=== PATIENT | male | born 1955 | race Two or more races ===

== ENCOUNTER 2016-05-19 08:53 | Day surgery (SDC) | payer BC ==
[~2016-05-19] VITALS: Ht 170.2 cm; Wt 90.6 kg
[2016-05-19 09:23] VITALS: Ht 170.2 cm; Wt 90.6 kg
[2016-05-19] MEDS ORDERED: OMEP20CA16 PO (09:38)
[2016-05-19] MEDS ORDERED: LOSA25TA5 PO (09:38)
[2016-05-19] MEDS ORDERED: ETAN25DI2 SQ (09:38)
[2016-05-19 09:44] VITALS: BP 139/74; PULSE 56; RESP 13
[2016-05-19] MEDS ORDERED: PROPOFOL 60 ML ONE (09:48)
[2016-05-19] MEDS ORDERED: LIDOCAINE 2% (SDV) 5 ML INJ ONE (09:48)
[2016-05-19 11:22] VITALS: BP 148/77; PULSE 52
--- NOTE | 2016-05-19 11:36 | GILP ---
DATE OF PROCEDURE: 05/19/2016 NAME OF PROCEDURES: 1. Esophagogastroduodenoscopy and biopsy. 2. Colonoscopy and biopsy. SURGEON: Yadiel Ba MD PREOPERATIVE DIAGNOSES: 1. Chronic heartburn. 2. Dysphagia. 3. Change in the bowel habit. 4. Weight loss. POSTOPERATIVE DIAGNOSES: 1. Hiatal hernia. 2. Gastroesophageal reflux disease. 3. Gastritis with erosions. 4. Gastric mucosal biopsies were taken for Helicobacter pylori test. 5. Colonoscopy all the way to the cecum. 6. Four small colon polyps were removed using the biopsy forceps. 7. Internal hemorrhoids. INDICATION FOR THE PROCEDURE: Mr. Jean Flaherty is a 60-year-old male patient who had chronic heart burn, not responding to therapy. The patient also had history of dysphagia. He had noticed a tyler e in the bowel habit with weight loss. The patient was scheduled for endoscopy and colonoscopy for further evaluation. The procedures and possible complications were well explained to the patient. The patient understoo d and consented to the procedure. DESCRIPTION OF PROCEDURE: Under the influence of anesthesia, the gastroscope was carefully introduc ed into the esophagus and under direct vision, it was advanced to the stomach and through the pyloru s into the duodenal bulb and descending duodenum. FINDINGS: ESOPHAGUS: The patient had hiatal hernia and gastroesophageal reflux disease. STOMACH: He had gastritis with erosions. Gastric mucosal biopsies were taken for H. pylori test. DUODENUM: Normal. The colonoscope was carefully introduced in the rectum and under direct vision, it was advanced all the way to the cecum. FINDINGS: The patient had 4 small colon polyps and they were removed using the biopsy forceps. He was noted to have internal hemorrhoids. He tolerated the procedures very well and there was no complication from the procedures. At the end of the procedures, he was awake with stable vital signs and he was discharged home to the care of h is family. IMPRESSION: Please see postoperative diagnosis. PLAN: 1. Continue omeprazole. 2. Add Zantac 300 mg p.o. at bedtime. 3. Await histopathology reports. Next screening colonoscopy in 5 years. Dictated By: YADIEL BA MD GD/SINDY Conf#: [id number] DID#: [id number] CC: YADIEL BA MD;*EndCC*
== END 2016-05-19 12:14 | disposition home or self-care (01) ==
LOC: GIL 08:53
PROVIDERS: ATTEND Internal Medicine Gastroenterology
DX: R19.4 Change in bowel habit (principal); D12.3 Benign neoplasm of transverse colon; K44.9 Diaphragmatic hernia without obstruction or gangrene; K21.9 Gastro-esophageal reflux disease without esophagitis; K29.60 Other gastritis without bleeding; K64.8 Other hemorrhoids

== ENCOUNTER 2017-12-18 05:20 | Emergency (ER) | END 2017-12-18 08:41 | disposition home or self-care (01) ==

== ENCOUNTER → 2018-10-07 | Outpatient (CLI) | payer BC ==
[~2018-10-07] MED LIST: ETAN25DI2 SQ; IBUP-1542 PO; LOSA25TA12 PO; OMEP20CA16 PO; ONDA4TAB14 PO
== END | disposition home or self-care (01) ==
LOC: LAB 10:24
PROVIDERS: ATTEND Internal Medicine
DX: R13.10 Dysphagia, unspecified (principal); R63.4 Abnormal weight loss
CPT/HCPCS: 80053; 82150; 83690; 84439; 84443; 85025

== ENCOUNTER 2018-10-25 09:32 | Day surgery (SDC) | payer BC ==
[~2018-10-25] VITALS: Ht 170.2 cm; Wt 87.8 kg
[~2018-10-25 09:32] MED LIST changes: -OMEP20CA16 PO; +OMEP20CA17 PO; +PROBIOTIC; +[UNRECOGNIZED DRUG - REMARK]
[2018-10-25 10:18] VITALS: Ht 170.2 cm; Wt 87.8 kg
[2018-10-25 10:28] VITALS: BP 156/88; PULSE 58; RESP 28
[2018-10-25] MEDS ORDERED: LIDOCAINE 4% SOLUTION 50 ML BTL ONE (10:36)
[2018-10-25] MEDS ORDERED: FENTAnyl 50 MCG/ML VIAL ONE (11:09)
[2018-10-25] MEDS ORDERED: MIDAZOLAM 1 MG/ML 2 ML INJ ONE ×2 (11:09)
[2018-10-25 11:26] VITALS: BP 133/77; RESP 20
== END 2018-10-25 13:42 | disposition home or self-care (01) ==
LOC: GIL 09:32
PROVIDERS: ATTEND Internal Medicine Gastroenterology
DX: K29.30 Chronic superficial gastritis without bleeding (principal)
CPT/HCPCS: 43239; 88305; 88312; J2250; J3010